=== PATIENT | female | born 1990 | race Caucasian/White ===

== ENCOUNTER 2019-09-21 11:44 | Emergency (ER) | payer MEDICAID ==
[~2019-09-21] VITALS: Ht 157.5 cm; Wt 81.6 kg
[2019-09-21 11:56] VITALS: BP_SYST 116
--- NOTE | 2019-09-21 13:45 | NUR ---
Patient to ER bed 02 to gown for evaluation. Side rails up.
--- NOTE | 2019-09-21 13:48 | NUR ---
Patient arrived in the ED, c/o abdominal pain and cough and congestion that started 2 days ago. Denied any recent injury or trauma. Denied any fevers, chills, N/V. Patient is alert and oriented x4, respirations even and unlabored, speaking in full sentences, ambulating with a steady gait. VSS, pain level 1/10. Informed of the wait time. INstructed to notify ED staff for any changes in condition or worsening of symptoms. Patient verbalized understanding.
--- NOTE | 2019-09-21 13:52 | NUR ---
ER Dr. Garcia at bedside examining patient.
--- NOTE | 2019-09-21 14:04 | NUR ---
# 24 gauge angiocath placed to left hand. Use of asceptic technique. Opsite placed over site. Blood return noted. Blood for lab drawn from site. Flushed with 10 cc of normal saline. No evidence of infiltration noted. Patient tolerated well.
--- NOTE | 2019-09-21 14:26 | NUR ---
Report and care transferred to HARJINDER Flores.
[2019-09-21 15:05] LABS: BASOPHILS % (AUTO) 0.4 % (0.0-2.0); EOSINOPHILS # (AUTO) 0.2 K/uL (0.0-0.4); HEMATOCRIT 46.3 % (36-48); HEMOGLOBIN 16.1 g/dL (12.0-16.0); LYMPHOCYTES # (AUTO) 1.9 K/uL (1.0-5.5); LYMPHOCYTES % (AUTO) 23.1 % (20.5-51.5); MEAN CORPUSCULAR HEMOGLOBIN 32 pg (27-31); MEAN CORPUSCULAR HGB CONC 35 % (32-36); MEAN CORPUSCULAR VOLUME 92 fL (79.0-98.0); MONOCYTES # (AUTO) 0.5 K/uL (0.0-1.0); MONOCYTES % (AUTO) 5.5 % (1.7-9.3); NEUTROPHILS # (AUTO) 5.7 K/uL (1.8-7.7); PLATELET COUNT (AUTO) 202 K/uL (130-430); RED BLOOD CELL COUNT(AUTO) 5.01 MIL/uL (4.2-6.2); RED CELL DISTRIBUTION WIDTH 12.6 % (9.0-15.0); WHITE BLOOD COUNT (AUTO) 8.3 K/uL (4.8-10.8)
[2019-09-21 15:23] LABS: CALCIUM 8.8 mg/dL (8.4-11.0); CREATININE 0.6 mg/dL (0.55-1.30); POTASSIUM 3.5 mmol/L (3.5-5.1)
[2019-09-21 15:30] LABS: ALBUMIN 3.2 g/dL (3.4-4.8); TOTAL BILIRUBIN 0.5 mg/dL (0.0-1.0)
--- NOTE | 2019-09-21 15:50 | NUR ---
Patient given written and verbal discharge instructions and verbalizes understanding. ER MD discussed with patient the results and treatment provided. Patient in stable condition. ID arm band removed. IV catheter removed intact and dressing applied, no active bleeding. Rx of Naproxen given. Patient educated on pain management and to follow up with PMD. Pain Scale 0/10. Opportunity for questions provided and answered. Medication side effect fact sheet provided.
[2019-09-21 15:51] VITALS: BP_SYST 116
== END 2019-09-21 15:51 | disposition home or self-care (01) ==
LOC: SED 11:44
DX: K29.70 Gastritis, unspecified, without bleeding (principal); N39.0 Urinary tract infection, site not specified; I10 Essential (primary) hypertension; F17.210 Nicotine dependence, cigarettes, uncomplicated
CPT/HCPCS: 36415; 80053; 81002; 83690-TC; 84484; 85025; 93005; 99284